=== PATIENT | female | born 1980 | race Caucasian/White ===

== ENCOUNTER 2016-11-26 21:30 | Emergency (ER) | payer OTHER, BC ==
[~2016-11-26] VITALS: Ht 165.1 cm; Wt 99.8 kg
[~2016-11-26 21:30] MED LIST: CPR500T PO; DICY10CA26 PO; DICY20TA57 PO; DOXY-233 PO; DULO60CA6 PO; HYDR-3583 PO; HYDR-3714 PO; HYDR1CAP2 PO; IBP200T PO; IBP800T PO; IBUP-1780 PO; LACT10SO33 PO; LACT1CAP62 PO; METR500T PO; MULT-608 PO; NAPR-243 PO; NAPR220C PO; NUVARING; ONDA-43 SL; ONDA4TAB11 PO; ONDAN4ODT PO; ONDN4T PO; OXYC-12 PO; POLY17PO23 PO; SERT100T8 PO; TEMA30CA6 PO; TRAM-21 PO; TRAM-42 PO; TRAM50TA2 PO; TRM50T PO; ZLP10T PO; [UNRECOGNIZED DRUG - OTHER]; [UNRECOGNIZED DRUG - OTHER] PO
[2016-11-26] MEDS ORDERED: SERT100T PO (21:56)
--- NOTE | 2016-11-26 22:09 | ED Upper Extremity ---
General Chief Complaint: Upper Extremity Stated Complaint: L FOREARM/WRIST INJ Nursing Triage Note: PT CO OF L WRIST INJURY, PT HAS BRUISING TO L WRIST SWOLLEN AND BRUISED. 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 States she was playing catch with one of the clients at work. States the baseball hit wrong. Patient states she is not allergic to tramadol. Location Injury Occurred: work Onset: this evening Pain/Injury Location: left forearm, left wrist, left hand Method of Injury: direct blow Modifying Factors: Improves With Immobilization, Worse With Movement Allergies and Home Medications Allergies Coded Allergies: oxycodone (Verified Adverse Reaction, Mild, 11/09/15) Itching Home Medications Hydrocodone/Acetaminophen 1 Each Tablet, 1 EACH PO Q4H PRN for PAIN, #14 Ref 0 Prescribed by: MACI BHARDWAJ on 11/26/169 Sertraline HCl 100 Mg Tablet, 150 MG PO DAILY, (Reported) Constitutional: no symptoms reported Musculoskeletal: see HPI, No back pain, joint pain, joint swelling Skin: change in color (ecchymosis lt forearm/wrist and hand.) Psychiatric/Neurological: Denies Numbness, Denies Paresthesia, Denies Tingling , Denies Weakness All Other Systems Reviewed Negative Unless Noted: Yes (Negative excepted noted.) Past Ajjwhbt-Smdujt-Adlhci Hx Patient Social History Alcohol Use: Denies Use Recreational Drug Use: No Smoking Status: Never a Smoker Recent Foreign Travel: No Contact w/Someone Who Travel: No Recent Infectious Disease Expo: No Recent Hopitalizations: No Immunizations Up To Date Date of Influenza Vaccine: May 10, 2014 Surgeries HX Surgeries: Yes (colon resection) Respiratory Hx Respiratory Disorders: Yes (WALKING PNEUMONIA SINCE JUL PER PATIENT) Respiratory Disorders: Pneumonia Cardiovascular Hx Cardiac Disorders: No Neurological Hx Neurological Disorders: No Reproductive System Hx Reproductive Disorders: Yes Sexually Transmitted Disease: No Female Reproductive Disorders: 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 Genitourinary Hx Genitourinary Disorders: No Gastrointestinal Hx Gastrointestinal Disorders: Yes (STATES HAS HAD SMALL PART OF BOWEL REMOVED , STATES UNKNOWN CAUSE) Musculoskeletal Hx Musculoskeletal Disorders: Yes (RT SHOULDER DISLOCATION- SURGERY X2) Endocrine Hx Endocrine Disorders: No HEENT HX ENT Disorders: No Cancer Hx Cancer: No Psychosocial Hx Psychiatric Problems: Yes Behavioral Health Disorders: Anxiety Integumentary HX Skin/Integumentary Disorder: No Blood Transfusions Hx Blood Disorders: No Adverse Reaction to a Blood Tr: No Reviewed Nursing Assessment Reviewed/Agree w Nursing PMH: Yes Family Medical History Significant Family History: No Pertinent Family Hx Family Medial History: Cancer 03 MOTHER MATERNAL GRANDMOTHER Heart disease 03 FATHER Physical Exam Vital Signs Vital Sign - Last 12Hours 11/26/16 21:45 Temp 97.5 Pulse 91 Resp 18 B/P (MAP) 137/108 Pulse Ox 97 Capillary Refill : Less Than 3 Seconds General Appearance: WD/WN, no apparent distress Cardiovascular: normal peripheral pulses Shoulder: normal inspection, non-tender, no evidence of injury, normal ROM Elbow/Forearm: normal ROM, Left, bone tenderness (distal forearm), ecchymosis ( distal anterior forearm), pain, soft tissue tenderness, swelling Wrist: Yes bone tenderness (left anterior wrist), Yes ecchymosis (left anterior wrist.), Yes limited ROM (left wrist), Yes pain (left wrist), Yes soft tissue tenderness (left wrist), Yes swelling (left wrist) Hand: Left, bone tenderness (left thumb), ecchymosis (left thumb, left palm, and second lt finger), limited ROM (left thumb), soft tissue tenderness (left thumb), swelling (left thumb) Neurologic/Tendon: normal sensation, normal motor functions, normal tendon functions, responds to pain, no evidence tendon injury Neurologic/Psychiatric: no motor/sensory deficits, alert, normal mood/affect, oriented x 3 Skin: warm/dry, ecchymosis (left anterior distal forearm/anterior wrist/left first and second fingers) Progress/Results/Core Measures Results/Orders My Orders Orders - MACI BHARDWAJ Forearm, Left, 2 Views (11/26/16 21:51) Hand, Left, 3 Views (11/26/16 21:51) Rx-Hydrocodone/Apap 5-325 Mg (Rx-Vicodin (11/26/16 22:45) Wrist-[place]ia (11/26/16 22:41) Rx-Tramadol Hcl (Rx-Ultram) (11/26/16 23:07) Vital Signs/I&O Blood Pressure Mean: 118 Diagnostic Imaging Diagonstic Imaging: Xray Plain Films/CT/US/NM/MRI: forearm Comments no acute bony abnormality Reviewed: Reviewed/Discussed (with Ric Hensley MD) Diagonstic Imaging: Xray Plain Films/CT/US/NM/MRI: hand Comments no acute bony abnormality Reviewed: Reviewed/Discussed (with Ric Hensley MD) Departure Communication Progress Notes Diagnostic findings discussed with the patient. Proceed with discharge to home. Patient placed in a universal wrist brace. Impression Impression: Primary Impression: Contusion of wrist Qualified Codes: S60.212A - Contusion of left wrist, initial encounter Additional Impression: Contusion of hand including fingers Qualified Codes: S60.222A - Contusion of left hand, initial encounter; S60.00XA - Contusion of unspecified finger without damage to nail, initial encounter Disposition: HOME, SELF-CARE Condition: Improved Departure-Patient Inst. Decision time for Depature: 22:38 Referrals: EMMIE PATTON DO (PCP/Family) Primary Care Physician Patient Instructions: Contusion (DC) Add. Discharge Instructions: All discharge instructions reviewed with patient and/or family. Voiced understanding. Medications as instructed. Tylenol extra strength [id number] as directed for pain. Do not use with the hydrocodone/Tylenol. Ibuprofen 800 mg by mouth every 8 hours as needed for pain. Elevate the left hand on pillows, ice pack for 20 minute intervals as needed for pain. Wrist splint as instructed. Follow-up with patient health as an outpatient in the next 5-7 days, call for appointment time. Return to the emergency department for worsened symptoms or any other concerns. Scripts Hydrocodone/Acetaminophen (Hydrocodon -Acetaminophen 5-325) 1 Each Tablet 1 EACH PO Q4H Y for PAIN, #14 TAB 0 Refills Prov: MACI BHARDWAJ 11/26/16 MACI BHARDWAJ Nov 26, 2016 22:09
[2016-11-26] MEDS ORDERED: HYDR-3812 PO (22:39)
[2016-11-26] MEDS ORDERED: RX-HYDROCODONE/APAP 5/325 MG #4 TAB PK PO PRN (22:45)
[2016-11-26] MEDS ORDERED: RX-TRAMADOL 50 MG (ULTRAM) TAB PPK#4 PO STA (23:07)
[2016-11-26 23:10] VITALS: BP 130/88
--- NOTE | 2016-11-27 07:48 | Diagnostic Imaging Report ---
INDICATION: Hit with softball. FINDINGS: The left forearm shows no fractures. There are no dislocation. Articulating surfaces are normal. IMPRESSION: Normal left forearm. Dictated by: Dictated on workstation # [id number]
--- NOTE | 2016-11-27 07:50 | Diagnostic Imaging Report ---
INDICATION: Hit with softball. FINDINGS: 3 views of the hand show no fracture, dislocations or other bony abnormalities. Articulating surfaces are normal. IMPRESSION: Normal left hand. Dictated by: Dictated on workstation # [id number]
== END 2016-11-26 23:12 | disposition home or self-care (01) ==
LOC: EDUNIT# 21:30 → ER 21:32
DX: S60.212A Contusion of left wrist, initial encounter (principal); S60.222A Contusion of left hand, initial encounter; W21.03XA Struck by baseball, initial encounter; Y92.320 Baseball field as the place of occurrence of the external cause; Y93.64 Activity, baseball; Y99.8 Other external cause status
CPT/HCPCS: 73090; 73130; 99283

== ENCOUNTER 2017-03-14 09:59 | Emergency (ER) | payer BC ==
[~2017-03-14] VITALS: Ht 162.6 cm; Wt 99.8 kg
[~2017-03-14 09:59] MED LIST changes: +HYDR-3812 PO; +SERT100T PO
[2017-03-14 10:54] LABS: BILIRUBIN,URINE NEGATIVE (NEGATIVE); KETONES,URINE NEGATIVE (NEGATIVE); LEUKOCYTE ESTERASE ,URINE NEGATIVE (NEGATIVE); NITRITE,URINE NEGATIVE (NEGATIVE); PH,URINE 6 (5-9); PROTEIN,URINE NEGATIVE (NEGATIVE); UROBILINOGEN,URINE NORMAL (NORMAL)
[2017-03-14 11:08] LABS: CALCIUM OXALATE CRYSTALS,UR RARE /LPF
--- NOTE | 2017-03-14 11:26 | ED GI ---
General Chief Complaint: Abdominal/GI Problems Stated Complaint: STOMACH ISSUES/NAUSEA/BLOATING/CRAMPING Nursing Triage Note: c/o nausea and abd bloating. Urinary frequency reported. Hx of cholecystectomy, appendectomy, and colectomy. Pt has been seeing Dr. Sandoval for recurrent GI issues. Recently started pm Aventyl 10 mg before meals. Sepsis Screen: No Definite Risk Source of Information: Patient Exam Limitations: No Limitations History of Present Illness Time Seen By Provider: 10:15 Initial Comments The patient is a 37-year-old white female who presents with a history of abdominal pain nausea bloating and cramping since Friday. She reports that she is absolutely miserable and not able to get out of bed or eat. This is in the spectrum of her long-standing problems. 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 She had a long-standing history of severe obstipation and constipation with repeated fecal impactions. She had on occasion required digital disimpaction plus enemas, oral multiple lavage multiple medications. 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 She states that that was a life change or for her and has been very good until the last 2 months or so. She has been seeing Dr. 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 About 2 weeks ago he put her on generic Pamelor with meals. She states he told her that this did not work in 2 weeks it was not likely to. She is to see him again next Friday. She has had previous cholecystectomy appendectomy multiple removals of endometrial implants and laparoscopic lysis of adhesions. Timing/Duration: 2-3 Days Severity/Quality: Moderate, Severe Location: Generalized Abdomen Activities at Onset: None Associated Symptoms: Nausea/Vomiting Allergies and Home Medications Allergies Coded Allergies: oxycodone (Verified Adverse Reaction, Mild, 11/09/15) Itching Home Medications Hydrocodone/Acetaminophen 1 Each Tablet, 1 EACH PO Q4H PRN for PAIN, #14 Ref 0 Prescribed by: MACI BHARDWAJ on 11/26/169 Sertraline HCl 100 Mg Tablet, 150 MG PO DAILY, (Reported) Review of Systems Constitutional: see HPI EENTM: No Symptoms Reported Respiratory: No Symptoms Reported Cardiovascular: No Symptoms Reported Gastrointestinal: See HPI, Abdomen Distended, Abdominal Pain, Nausea Genitourinary: Frequency Musculoskeletal: no symptoms reported Skin: no symptoms reported Psychiatric/Neurological: No Symptoms Reported Endocrine: No Symptoms Reported Hematologic/Lymphatic: No Symptoms Reported Past Yfhuhgv-Objwks-Bydxzv Hx Patient Social History Alcohol Use: Denies Use Recreational Drug Use: No Smoking Status: Never a Smoker Recent Foreign Travel: No Contact w/Someone Who Travel: No Recent Infectious Disease Expo: No Recent Hopitalizations: No Immunizations Up To Date Date of Influenza Vaccine: May 10, 2014 Surgeries HX Surgeries: Yes (colon resection) Respiratory Hx Respiratory Disorders: Yes (WALKING PNEUMONIA SINCE JUL PER PATIENT) Respiratory Disorders: Pneumonia Cardiovascular Hx Cardiac Disorders: No Neurological Hx Neurological Disorders: No Reproductive System Hx Reproductive Disorders: Yes Sexually Transmitted Disease: No Female Reproductive Disorders: 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 Genitourinary Hx Genitourinary Disorders: No Gastrointestinal Hx Gastrointestinal Disorders: Yes (STATES HAS HAD SMALL PART OF BOWEL REMOVED , STATES UNKNOWN CAUSE) Musculoskeletal Hx Musculoskeletal Disorders: Yes (RT SHOULDER DISLOCATION- SURGERY X2) Endocrine Hx Endocrine Disorders: No HEENT HX ENT Disorders: No Cancer Hx Cancer: No Psychosocial Hx Psychiatric Problems: Yes Behavioral Health Disorders: Anxiety Integumentary HX Skin/Integumentary Disorder: No Blood Transfusions Hx Blood Disorders: No Adverse Reaction to a Blood Tr: No Family Medical History Significant Family History: No Pertinent Family Hx Family Medial History: Cancer 03 MOTHER MATERNAL GRANDMOTHER Heart disease 03 FATHER Physical Exam Vital Signs VS - Last 72 Hours, by Label 03/14/17 10:20 Temp 97.5 Pulse 70 B/P (MAP) 135/99 Pulse Ox 98 O2 Delivery Room Air Capillary Refill : Less Than 3 Seconds General Appearance: moderate distress HEENT: PERRL/EOMI, normal ENT inspection, TMs normal, pharynx normal Neck: full range of motion Respiratory: chest non-tender, lungs clear, normal breath sounds, no respiratory distress, no accessory muscle use Cardiovascular: normal peripheral pulses, regular rate, rhythm, no edema, no gallop, no JVD, no murmur Gastrointestinal: abnormal bowel sounds (decreased), tenderness (generalized) Neurologic/Psychiatric: 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, no motor/sensory deficits, alert, normal mood/affect, oriented x 3 Skin: normal color, warm/dry Lymphatic: no adenopathy Progress/Results/Core Measures Results/Orders Lab Results Laboratory Tests Test 03/14/17 10:15 03/14/17 11:20 Range/Units Urine Color YELLOW Urine Clarity CLEAR Urine pH 6 5-9 Urine Specific [place] 1.025 H 1.016-1.022 Urine Protein NEGATIVE NEGATIVE Urine Glucose (UA) NEGATIVE NEGATIVE Urine Ketones NEGATIVE NEGATIVE Urine Nitrite NEGATIVE NEGATIVE Urine Bilirubin NEGATIVE NEGATIVE Urine Urobilinogen NORMAL NORMAL MG/DL Urine Leukocyte Esterase NEGATIVE NEGATIVE Urine RBC (Auto) 2+ H NEGATIVE Urine RBC RARE /HPF Urine WBC NONE /HPF Urine Squamous Epithelial Cells NONE /HPF Urine Crystals PRESENT H /LPF Urine Calcium Oxalate Crystals RARE H /LPF Urine Bacteria TRACE /HPF Urine Casts NONE /LPF Urine Mucus NEGATIVE /LPF Urine Culture Indicated NO White Blood Count 6.9 4.3-11.0 10^3/uL Red Blood Count 4.62 4.35-5.85 10^6/uL Hemoglobin 13.8 11.5-16.0 G/DL Hematocrit 42 35-52 % Mean Corpuscular Volume 91 80-99 FL Mean Corpuscular Hemoglobin 30 25-34 PG Mean Corpuscular Hemoglobin Concent 33 32-36 G/DL Red Cell Distribution Width 12.6 10.0-14.5 % Platelet Count 285 130-400 10^3/uL Mean Platelet Volume 9.3 7.4-10.4 FL Neutrophils (%) (Auto) 57 42-75 % Lymphocytes (%) (Auto) 29 12-44 % Monocytes (%) (Auto) 8 0-12 % Eosinophils (%) (Auto) 5 0-10 % Basophils (%) (Auto) 0 0-10 % Neutrophils # (Auto) 3.9 1.8-7.8 X 10^3 Lymphocytes # (Auto) 2.0 1.0-4.0 X 10^3 Monocytes # (Auto) 0.5 0.0-1.0 X 10^3 Eosinophils # (Auto) 0.4 H 0.0-0.3 10^3/uL Basophils # (Auto) 0.0 0.0-0.1 10^3/uL Sodium Level 140 135-145 MMOL/L Potassium Level 3.9 3.6-5.0 MMOL/L Chloride Level 105 98-107 MMOL/L Carbon Dioxide Level 24 21-32 MMOL/L Anion Gap 11 5-14 MMOL/L Blood Urea Nitrogen 12 7-18 MG/DL Creatinine 0.80 0.60-1.30 MG/DL Estimat Glomerular Filtration Rate > 60 BUN/Creatinine Ratio 15 Glucose Level 85 70-105 MG/DL Calcium Level 9.6 8.5-10.1 MG/DL Total Bilirubin 0.4 0.1-1.0 MG/DL Aspartate Amino Transf (AST/SGOT) 16 5-34 U/L Alanine Aminotransferase (ALT/SGPT) 14 0-55 U/L Alkaline Phosphatase 85 40-136 U/L Total Protein 8.0 6.4-8.2 GM/DL Albumin 4.1 3.2-4.5 GM/DL Lipase 17 8-78 U/L My Orders Orders - MARY MENENDEZ MD Ua Culture If Indicated (03/14/17 10:19) Cbc With Automated Diff (03/14/17 10:52) Comprehensive Metabolic Panel (03/14/17 10:52) Lipase (03/14/17 10:52) Abdomen/Kub 1view (03/14/17 11:12) Soap Suds Enema (03/14/17 12:31) Vital Signs/I&O Vital Sign - Last 12Hours 03/14/17 10:20 Temp 97.5 Pulse 70 B/P (MAP) 135/99 Pulse Ox 98 O2 Delivery Room Air Blood Pressure Mean: 111 Departure Communication Progress Notes [address] Terry. It appears that there is a rather considerable amount of stool accumulated in the pelvis but above the rectum. The patient has previously had an ilio proctostomy and therefore this would appear to be stool in the distal ileum. The plan will be to attempt an enema at this point. Impression Impression: Primary Impression: abdominal pain Disposition: 01 HOME, SELF-CARE Condition: Stable/Unchanged Departure-Patient Inst. Decision time for Depature: 12:39 Referrals: EMMIE PATTON DO (PCP/Family) Primary Care Physician Patient Instructions: No Instuctions Given Add. Discharge Instructions: All discharge instructions reviewed with patient and/or family. Voiced understanding. Use a Dulcolax suppository if needed. Consider MiraLAX daily Keep appointment with Dr. Sandoval as scheduled Return to ER if necessary MARY MENENDEZ MD Mar 14, 2017 11:26
[2017-03-14 11:30] LABS: BASOPHILS % (AUTO) 0 % (0-10); EOSINOPHILS # (AUTO) 0.4 10^3/uL (0.0-0.3); EOSINOPHILS % (AUTO) 5 % (0-10); LYMPHOCYTES % (AUTO) 29 % (12-44); MEAN CORPUSCULAR HEMOGLOBIN 30 PG (25-34); MEAN CORPUSCULAR HGB CONC 33 G/DL (32-36); MEAN CORPUSCULAR VOLUME 91 FL (80-99); MEAN PLATELET VOLUME 9.3 FL (7.4-10.4); MONOCYTES # (AUTO) 0.5 X 10^3 (0.0-1.0); MONOCYTES % (AUTO) 8 % (0-12); NEUTROPHILS # (AUTO) 3.9 X 10^3 (1.8-7.8); NEUTROPHILS % (AUTO) 57 % (42-75); PLATELET COUNT 285 10^3/uL (130-400); RED BLOOD COUNT 4.62 10^6/uL (4.35-5.85); RED CELL DISTRIBUTION WIDTH 12.6 % (10.0-14.5); WHITE BLOOD COUNT 6.9 10^3/uL (4.3-11.0)
[2017-03-14 11:48] LABS: ALANINE AMINOTRANSFERASE 14 U/L (0-55); ALBUMIN 4.1 GM/DL (3.2-4.5); ANION GAP 11 MMOL/L (5-14); ASPARTATE AMINO TRANSFERASE 16 U/L (5-34); BILIRUBIN,TOTAL 0.4 MG/DL (0.1-1.0); BLOOD UREA NITROGEN 12 MG/DL (7-18); BUN/CREATININE RATIO 15; CALCIUM 9.6 MG/DL (8.5-10.1); CARBON DIOXIDE 24 MMOL/L (21-32); CHLORIDE 105 MMOL/L (98-107); GFR ESTIMATED > 60; GLUCOSE 85 MG/DL (70-105); LIPASE 17 U/L (8-78); POTASSIUM 3.9 MMOL/L (3.6-5.0); SODIUM 140 MMOL/L (135-145)
--- NOTE | 2017-03-14 12:26 | Diagnostic Imaging Report ---
EXAMINATION: Abdomen 1135. INDICATION: Abdominal pain 3 views were obtained. There is some gas in both the large and small bowel in a nonspecific fashion. There is no evidence for a bowel obstruction. There is moderate amount of fecal material in the rectosigmoid portion of the colon. There is no mass or organomegaly appreciated. Surgical clips overlying the abdomen seen on prior CT abdomen/pelvis exam of 11/18/13 are again visualized. The osseous structures are intact. IMPRESSION: The bowel gas pattern is nonspecific. There is no acute abnormality identified. Dictated by: Dictated on workstation # [id number]
[2017-03-14] MEDS: FLEET ENEMA ADULT 1 EA BTL ONE (13:00)
[2017-03-14 14:01] VITALS: BP 132/90
== END 2017-03-14 14:01 | disposition home or self-care (01) ==
LOC: EDUNIT# 09:59 → ER 10:01
DX: R10.84 Generalized abdominal pain (principal); K59.09 Other constipation; F41.9 Anxiety disorder, unspecified; Z90.49 Acquired absence of other specified parts of digestive tract; Z90.710 Acquired absence of both cervix and uterus; Z87.01 Personal history of pneumonia (recurrent); Z87.19 Personal history of other diseases of the digestive system; Z87.828 Personal history of other (healed) physical injury and trauma
CPT/HCPCS: 36415; 74000; 80053; 81000; 83690; 85025; 99283

== ENCOUNTER 2017-09-03 20:50 | Emergency (ER) | payer OTHER, BC ==
[~2017-09-03] VITALS: Ht 165.1 cm; Wt 108.9 kg
[~2017-09-03 20:50] MED LIST changes: +ACHD5005 PO; -HYDR-3812 PO; -SERT100T PO; +SERT20OR PO
[2017-09-03] MEDS ORDERED: LIDOCAINE 2% 20 ML (XYLOCAINE) VIAL INJ STA (21:18)
--- NOTE | 2017-09-03 21:25 | ED Upper Extremity ---
General Chief Complaint: Upper Extremity Stated Complaint: L PINKY BROKEN Nursing Triage Note: pt reports she leaned back on an unsteady table at work et caught finger. deformity noted of left 5th finger. skin warm to the touch. Nursing Sepsis Screen: No Definite Risk Source: patient Exam Limitations: no limitations History of Present Illness Date Seen by Provider: Sep 03, 2017 Time Seen by Provider: 21:10 Initial Comments Here with report of left fifth finger deformity. She is at work and leaned against a table that apparently was unsteady. It tipped a little bit and she lost her balance and caught her pinky finger. This caused deformity. Denies other injury. Onset: just prior to arrival Severity: moderate Pain/Injury Location: left 5th finger Method of Injury: twisted Modifying Factors: Improves With Immobilization, Worse With Movement Allergies and Home Medications Allergies Coded Allergies: oxycodone (Verified Adverse Reaction, Mild, 11/09/15) Itching Home Medications Hydrocodone Bit/Acetaminophen 1 Each Tablet, 1 EACH PO Q4H PRN for PAIN, #14 Ref 0 Prescribed by: MACI BHARDWAJ on 11/26/16 2239 Sertraline HCl 100 Mg Tablet, 150 MG PO DAILY, (Reported) Constitutional: see HPI, No chills, No fever Respiratory: no symptoms reported Cardiovascular: no symptoms reported Gastrointestinal: no symptoms reported Musculoskeletal: see HPI, joint pain, joint swelling Skin: no symptoms reported Psychiatric/Neurological: No Symptoms Reported Past Maflhit-Dslylz-Tfsivt Hx Patient Social History Alcohol Use: Denies Use Recreational Drug Use: No Smoking Status: Never a Smoker Recent Foreign Travel: No Contact w/Someone Who Travel: No Recent Infectious Disease Expo: No Recent Hopitalizations: No Immunizations Up To Date Date of Influenza Vaccine: May 10, 2014 Surgeries History of Surgeries: Yes (colon resection) Surgeries: Abdominal Respiratory History of Respiratory Disorde: Yes (WALKING PNEUMONIA SINCE JUL PER PATIENT) Respiratory Disorders: Pneumonia Cardiovascular History of Cardiac Disorders: No Neurological History of Neurological Disord: No Reproductive System Hx Reproductive Disorders: Yes Sexually Transmitted Disease: No Female Reproductive Disorders: 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 Gastrointestinal History of Gastrointestinal Di: Yes (STATES HAS HAD SMALL PART OF BOWEL REMOVED , STATES UNKNOWN CAUSE) Musculoskeletal History of Musculoskeletal Dis: Yes (RT SHOULDER DISLOCATION- SURGERY X2) Endocrine History of Endocrine Disorders: No Cancer History of Cancer: No Psychosocial History of Psychiatric Problem: Yes Behavioral Health Disorders: Anxiety Integumentary History of Skin or Integumenta: No Blood Transfusions History of Blood Disorders: No Adverse Reaction to a Blood Tr: No Reviewed Nursing Assessment Reviewed/Agree w Nursing PMH: Yes Family Medical History Significant Family History: No Pertinent Family Hx Family Medial History: Cancer 03 MOTHER MATERNAL GRANDMOTHER Heart disease 03 FATHER Physical Exam Vital Signs Vital Sign - Last 12Hours 09/03/17 21:05 Temp 98.5 Pulse 79 Resp 18 B/P (MAP) 154/118 (130) Capillary Refill : Less Than 3 Seconds General Appearance: WD/WN, no apparent distress Cardiovascular: regular rate, rhythm, no murmur Respiratory: lungs clear, normal breath sounds, no respiratory distress Wrist: Yes normal inspection, Yes no evidence of injury, Yes normal ROM Hand: Left, bone tenderness, deformity (noted at the IP joint on the left fifth finger and appears as dislocation deformity with proximal segment medial and distal segment lateral and dorsal.), swelling Neurologic/Psychiatric: no motor/sensory deficits, alert, oriented x 3, other ( distal sensation and circulation to deformed left fifth finger intact) Skin: normal color, warm/dry Splinting and Joint Reduction : Location: left fifth finger IP joint Pre-Proc Neuro Vasc Exam: normal Post-Proc Neuro Vasc Exam: normal Progress Digital block to the left fifth finger with 2 percent lidocaine. Good anesthesia. Finger dislocation reduced with traction. Excellent range of motion afterwards. AlumaFoam a splint applied. No complications. Progress/Results/Core Measures Results/Orders My Orders Orders - EL ROWAN MD Lidocaine 2% Injection 20 Ml (Xylocaine (09/03/17 21:18) Vital Signs/I&O Vital Sign - Last 12Hours 09/03/17 21:05 Temp 98.5 Pulse 79 Resp 18 B/P (MAP) 154/118 (130) Blood Pressure Mean: 130 Progress Note : Progress Note Seen and evaluated. X-ray left fifth finger. Dislocation noted without fracture. Digital block and reduction by me. Excellent range of motion afterwards. Splint applied after. Discharged home with return precautions. Patient verbalize understanding instructions and agreement with plan. Diagnostic Imaging Diagonstic Imaging: Xray Plain Films/CT/US/NM/MRI: other Comments NAME: AMERICO KOEHLER MED REC#: [id number] PT STATUS: REG ER : 1980 PHYSICIAN: OLAMIDE SÁNCHEZ ADMIT DATE: 09/03/17/ER Draft Date of Exam:09/03/17 FINGER(S) INDICATION: Small finger pain. COMPARISON: None available. TECHNIQUE: Three views of the left small finger. FINDINGS AND IMPRESSION: 1. There is dorsal and ulnar dislocation of the small finger PIP joint. 2. No acute fracture. Dictated on workstation # [id number] Dict: 09/03/[id number] Trans: 09/03/172133 PJE [id number] Interpreted by: BRIANNA YO MD Electronically signed by: Departure Impression Impression: Primary Impression: Dislocation of IP joint of hand, left, closed Qualified Codes: S63.279A - Dislocation of unspecified interphalangeal joint of unspecified finger, initial encounter Disposition: HOME, SELF-CARE Condition: Improved Departure-Patient Inst. Decision time for Depature: 21:40 Referrals: LILLIAN ROMERO JACQUELINE S DO (PCP/Family) Primary Care Physician Patient Instructions: Finger Dislocation (DC) Add. Discharge Instructions: All discharge instructions reviewed with patient and/or family. Voiced understanding. Keep splint in place. Follow-up with the orthopedic doctor listed or one of your choosing within the next week for recheck and further evaluation. Return for worse pain, swelling, weakness, numbness or other concerns as needed. You may take ibuprofen 800 mg every 8 hours as needed for pain. You may take Tylenol 1000 mg every 8 hours as needed for pain. You may use ice packs to affected area 20 minutes per hour as needed for swelling and pain over the next few days. EL ROWAN MD Sep 03, 2017 21:25
--- NOTE | 2017-09-03 21:34 | Diagnostic Imaging Report ---
INDICATION: Small finger pain. COMPARISON: None available. TECHNIQUE: Three views of the left small finger. FINDINGS AND IMPRESSION: 1. There is dorsal and ulnar dislocation of the small finger PIP joint. 2. No acute fracture. Dictated by: Dictated on workstation # [id number]
[2017-09-03 22:01] VITALS: BP 134/91
== END 2017-09-03 22:01 | disposition home or self-care (01) ==
LOC: EDUNIT# 20:50 → ER 20:52
DX: S63.287A Dislocation of proximal interphalangeal joint of left little finger, initial encounter (principal); F41.9 Anxiety disorder, unspecified; Z82.49 Family history of ischemic heart disease and other diseases of the circulatory system; Z87.01 Personal history of pneumonia (recurrent); Z90.710 Acquired absence of both cervix and uterus; X50.0XXA Overexertion from strenuous movement or load, initial encounter; Y92.89 Other specified places as the place of occurrence of the external cause
CPT/HCPCS: 29130; 73140

== ENCOUNTER 2022-01-09 06:19 | Emergency (ER) | payer OTHER, BC ==
[~2022-01-09] VITALS: Ht 165 cm; Wt 80.1 kg
[~2022-01-09 06:19] MED LIST changes: +SERT100T PO; -SERT20OR PO
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
[2022-01-09] MEDS ORDERED: BSS 15 ML IR ONE (07:15)
[2022-01-09] MEDS ORDERED: TETRACAINE 0.5% OPHTH SOLN 4 ML BTL (SINGLE DOSE ONLY) OU ONE (07:15)
[2022-01-09] MEDS ORDERED: FLUORESCEIN (FLUOR-I-STRIPS) 1 MG STRP OU ONE (07:15)
[2022-01-09] MEDS ORDERED: ONDANSETRON 4 MG (ZOFRAN) ORAL DISSOLVE TAB PO STA (07:32)
[2022-01-09] MEDS ORDERED: TETANUS,DIPTH,PERTUSS P/F (BOOSTRIX) 0.5 ML VIAL IM ONE (07:45)
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
[2022-01-09] MEDS ORDERED: ERYTHROMYCIN OPHTH OINT 1 GM (SINGLE USE) TUBE OP STA (08:08)
[2022-01-09] MEDS ORDERED: ONDA4TAB11 PO (08:22)
[2022-01-09] MEDS ORDERED: ERYT1OIN6 OP (08:24)
[2022-01-09] MEDS ORDERED: ACETAMINOPHEN 500 MG TAB (TYLENOL) PO ONE (08:30)
[2022-01-09 08:42] VITALS: BP 119/74
== END 2022-01-09 08:42 | disposition home or self-care (01) ==
LOC: EDUNIT# 06:19 → ER 06:28
DX: S80.02XA Contusion of left knee, initial encounter (principal); S40.022A Contusion of left upper arm, initial encounter; S05.01XA Injury of conjunctiva and corneal abrasion without foreign body, right eye, initial encounter; Z23 Encounter for immunization; V89.2XXA Person injured in unspecified motor-vehicle accident, traffic, initial encounter; Y92.410 Unspecified street and highway as the place of occurrence of the external cause
CPT/HCPCS: 73562; 90715